=== PATIENT | female | born 1975 | race Two or more races ===

== ENCOUNTER 2018-10-14 04:59 | Observation (INO) | payer SELFPAY ==
--- NOTE | 2018-10-14 07:15 | US ---
INDICATION: Vaginal bleeding. Placenta previa. TECHNIQUE: A limited transabdominal obstetrical ultrasound COMPARISON: 10/02/2018 FINDINGS: A single live intrauterine gestation is again seen. There is cardiac activity with a heart rate of 134 BPM. measurements are not performed and anatomy is not evaluated. Complete placenta previa is again seen. The cervix is not well evaluated. Neither ovary is visualized. IMPRESSION: Limited study. A single live intrauterine gestation. A complete placenta previa again seen. The cervix and anatomy are not evaluated. Dictated by Zac Plummer MD @ 10/14/2018 7:13:40 AM Dictated by: Zac Plummer MD @ 10/14/2018 07:13:50 (Electronically Signed)
--- NOTE | 2018-10-14 07:49 | CONS ---
DATE OF CONSULTATION: 10/14/2018 DATE OF : 1975 PRIMARY CARE PHYSICIAN: None PCP Ms. Acevedo is a 43-year-old patient. She is para 6-0-2-4. This is her 7th . She is 26+ weeks by early ultrasound. She is mainly followed by our nurse-laboratory associate at this time. She has only been to the clinic for a few visits. However, the patient recently had an ultrasound with a diagnosis of complete placenta previa. The patient is presented today to Labor and Delivery, stated that when she went to the bathroom she had bleeding and blood clot had passed through her vagina to the bathroom, and she described the blood clot as about the size of a quarter and then she stopped bleeding. The bleeding is not initiated after sex and it is spontaneous. She has no contractions, no pain. She came to Labor and Delivery to be evaluated. At the time of the evaluation, her vital signs were essentially normal. heart rate is normal for 26 weeks' . I have the ultrasound repeated by the diesel powerplant supervisor staff and it has confirmed the presence of the placenta previa without any separation. I did gentle speculum exam. There is no active bleeding. There is some blood-tinged discharge in the vagina, but there is no other bleeding. Her vital signs were essentially stable and normal. I informed the patient of her diagnosis. She is already aware of the fact that she has placenta previa. My plan is to admit her for observation and to do serial H and H, and evaluate and manage accordingly. ALCIDES / DUARTE /[id number]
[2018-10-14] MEDS ORDERED: Acetaminophen 500 MG Tab PO ONE (19:46)
--- NOTE | 2018-10-15 11:47 | PCM.LDHP ---
L&D History of Present Illness - General Date of Service: 10/13/18 Admit Problem/Dx: Patient Status Order with Admit Dx/Problem 10/14/18 05:24 Patient Status [ADT] Routine 10/14/18 07:09 Patient Status [ADT] Routine Admission Diagnosis/Problem Admission Diagnosis/Problem Source of Information: Patient History Limitations: Reports: No Limitations - History of Present Illness Pain Score: 0 Improves with: Reports: None Worsens with: Reports: None Associated Symptoms: Reports: N - Related Data Allergies/Adverse Reactions: Allergies Allergy/AdvReac Type Severity Reaction Status Date / Time No Known Allergies Allergy Verified 09/30/15 04:51 Past Medical History - Past Health History Medical/Surgical History: Denies 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: Social & Family History - Family History Family Medical History: Unobtainable - Tobacco Use Smoking Status *Q: Never Smoker Second Hand Smoke Exposure: No - Caffeine Use Caffeine Use: Reports: Coffee - Recreational Drug Use Recreational Drug Use: No H&P Review of Systems - Review of Systems: Review Of Systems: See Below General: Reports: No Symptoms HEENT: Reports: No Symptoms Pulmonary: Reports: No Symptoms Cardiovascular: Reports: No Symptoms Gastrointestinal: Reports: No Symptoms Genitourinary: Reports: No Symptoms Musculoskeletal: Reports: No Symptoms Skin: Reports: No Symptoms Psychiatric: Reports: No Symptoms Neurological: Reports: No Symptoms Hematologic/Lymphatic: Reports: No Symptoms Immunologic: Reports: No Symptoms L&D Exam - Exam Exam: See Below - Vital Signs Weight: 67.585 kg - OB Specific Movement: Active Heart Tones: Present Presentation: Vertex - Exam General: Alert, Oriented HEENT: PERRLA, Conjunctiva Clear, EACs Clear, EOMI, Hearing Intact, Mucosa Moist & [place], Nares Patent, Normal Nasal Septum, Posterior Pharynx Clear, TMs Clear Neck: Supple, Trachea Midline Lungs: Clear to Auscultation, Normal Respiratory Effort Cardiovascular: Regular Rate, Regular Rhythm GI/Abdominal Exam: Normal Bowel Sounds, Soft, Non-Tender, No Organomegaly, No Distention, No Abnormal Bruit, No Mass, Pelvis Stable Rectal Exam: Normal Exam, Normal Rectal Tone Genitourinary: Normal external exam, Normal bimanual exam, Normal speculum exam Back Exam: Normal Inspection, Full Range of Motion Extremities: Normal Inspection, Normal Range of Motion, Non-Tender, No Pedal Edema, Normal Capillary Refill Skin: Warm, Dry, Intact Neurological: Cranial Nerves Intact, Reflexes Equal Bilateral Psychiatric: Alert, Normal Affect, Normal Mood - Patient Data Lab Results Last 24 hrs: Laboratory Results - last 24 hr 10/15/18 Range/Units 06:20 Hgb 10.7 L (12.0-16.0) g/dL Hct 31.9 L (36.0-46.0) % Result Diagrams: 10/15/18 06:20 Problem List Initiated/Reviewed/Updated: Yes Assessment/Plan Comment:: See my dictated consultation note.
--- NOTE | 2018-10-15 11:50 | PCM.DCSUM1 ---
Discharge Summary - Hospital Course Diagnosis: Stroke: No - Discharge Data Discharge Date: 10/15/18 Discharge Disposition: Home, Self-Care 01 Condition: Good - Patient Instructions Diet: Usual Diet as Tolerated Activity: As Tolerated Driving: May Drive Today, Do Not Drive Showering/Bathing: May Shower - Discharge Plan - Discharge Summary/Plan Comment DC Time >30 min.: Yes - General Info Date of Service: 10/15/18 Functional Status: Reports: Pain Controlled - Review of Systems General: Reports: No Symptoms HEENT: Reports: No Symptoms Pulmonary: Reports: No Symptoms Cardiovascular: Reports: No Symptoms Gastrointestinal: Reports: No Symptoms Genitourinary: Reports: No Symptoms Musculoskeletal: Reports: No Symptoms Skin: Reports: No Symptoms Neurological: Reports: No Symptoms Psychiatric: Reports: No Symptoms - Patient Data Weight - Most Recent: 67.585 kg Lab Results - Last 24 hrs: Laboratory Results - last 24 hr 10/15/18 Range/Units 06:20 Hgb 10.7 L (12.0-16.0) g/dL Hct 31.9 L (36.0-46.0) % Med Orders - Current: Current Medications Discontinued Medications Acetaminophen (Tylenol Extra Strength) 1,000 mg PO ONETIME ONE Stop: 10/14/18 19:47 Last Admin: 10/14/18 20:41 Dose: 1,000 mg - Exam General: Reports: Alert, Oriented HEENT: Reports: Pupils Equal, Pupils Reactive, EOMI, Mucous Membr. Moist/[place] Neck: Reports: Supple Lungs: Reports: Clear to Auscultation, Normal Respiratory Effort Cardiovascular: Reports: Regular Rate, Regular Rhythm GI/Abdominal Exam: Normal Bowel Sounds, Soft, Non-Tender, No Organomegaly, No Distention, No Abnormal Bruit, No Mass, Pelvis Stable (Female) Exam: Normal External Exam, Normal Speculum Exam, Normal Bimanual Exam Rectal (Female) Exam: Normal Exam, Normal Rectal Tone Back Exam: Reports: Normal Inspection, Full Range of Motion Extremities: Normal Inspection, Normal Range of Motion, Non-Tender, No Pedal Edema, Normal Capillary Refill Skin: Reports: Warm, Dry, Intact Wound/Incisions: Reports: Healing Well Neurological: Reports: No New Focal Deficit Psy/Mental Status: Reports: Alert, Normal Affect, Normal Mood
== END 2018-10-15 12:04 | disposition home or self-care (01) ==
LOC: MW.OBCHECK 04:59 → MW.OB 05:02 → MW.OBCHECK 07:08 → MW.OB 07:09
PROVIDERS: ADMIT Obstetrics & Gynecology; ATTEND Obstetrics & Gynecology
DX: O46.92 Antepartum hemorrhage, unspecified, second trimester (principal); Z3A.26 26 weeks gestation of pregnancy
CPT/HCPCS: 36415; 59025; 76815; 85014; 85018; 85027; 86850; 86900; 86901; A9270; G0378

== ENCOUNTER 2019-01-02 00:43 | Inpatient (IN) | payer SELFPAY ==
[~2019-01-02 00:43] MED LIST: Sodium Chloride 0.9% 1,000 ML IV ONE
--- NOTE | 2019-01-02 00:52 | EDM.PDOC ---
ED HPI GENERAL MEDICAL PROBLEM - General Stated Complaint: 35WKS AND BLEEDING Time Seen by Provider: 01/02/19 00:46 - History of Present Illness INITIAL COMMENTS - FREE TEXT/NARRATIVE: HISTORY AND PHYSICAL: History of present illness: Patient is 43-year-old female approximately 35 weeks with reported placenta previa who presents with concern of vaginal bleeding generalized weakness and dizziness this started acutely tonight. On arrival patient is pale awake conversant following commands with large blood coming from her vagina. 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 Breaux CLAIM EXAMINER as well as anesthesia and operating room team were activated immediately Review of systems: As per history of present illness and below otherwise all systems reviewed and negative. Past medical history: As per history of present illness and as reviewed below otherwise noncontributory. Surgical history: As per history of present illness and as reviewed below otherwise noncontributory. Social history: No reported history of drug or alcohol abuse. Family history: As per history of present illness and as reviewed below otherwise noncontributory. Physical exam: HEENT: Atraumatic, normocephalic, pupils reactive, marked conjunctival pallor no scleral icterus, mucous membranes moist, throat clear, neck supple, nontender , trachea midline. Lungs: Clear to auscultation, breath sounds equal bilaterally, chest nontender. Heart: S1S2, regular, negative for clicks, rubs, or JVD. Abdomen: Soft, gravid uterus consistent with dates noted, nontender. Negative for masses or hepatosplenomegaly. Negative for costovertebral tenderness. Pelvis: Stable nontender. Genitourinary: Deferred. Rectal: Deferred. Extremities: Atraumatic, negative for cords or calf pain. Neurovascular unremarkable. Neuro: Awake, somnolent, oriented. Follows commands moves all extremities and grossly nonfocal exam. Diagnostics: CBC CMP PT/INR O- blood monitoring. Inspector [employer]: Large-bore IV 0.9 normal saline 1 L bolus 2 units O- blood when available O2 Impression: #1 35 week intrauterine with placenta previa and vaginal bleeding Definitive disposition and diagnosis as appropriate pending reevaluation and review of above. 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 ED EXAM, GENERAL - Physical Exam Exam: See Below (See dictation) Departure - Departure Time of Disposition: 00:52 Disposition: Still A Patient 30 Condition: Critical Clinical Impression: Placenta previa, Vaginal bleeding - Discharge Information Referrals: PCP,None [Primary Care Provider] -
[2019-01-02] MEDS ORDERED: Rocuronium 100 MG/10 ML Syringe ONE (01:04)
[2019-01-02] MEDS ORDERED: ePHEDrine 50 MG/ML SDV ONE (01:05)
[2019-01-02] MEDS ORDERED: Phenylephrine/Normal Saline 100 MCG/ML 10 ML Syringe ONE (01:05)
[2019-01-02] MEDS ORDERED: Midazolam 1 MG/ML 2 ML SDV ONE (01:05)
[2019-01-02] MEDS ORDERED: Propofol 200 MG/20 ML SDV ONE (01:05)
[2019-01-02] MEDS ORDERED: fentaNYL 250 MCG/5 ML SDV ONE (01:05)
[2019-01-02 01:09] LABS: BLOOD UREA NITROGEN,BUN 7 mg/dL (7.0-18.0); CARBON DIOXIDE,CO2 19.5 mmol/L (21.0-32.0); CHLORIDE,CL 105 mmol/L (98-107); GLUCOSE RANDOM 95 mg/dL (74-106); POTASSIUM,K 3.8 mmol/L (3.5-5.1); SODIUM,NA 136 mmol/L (136-145)
[2019-01-02] MEDS ORDERED: Octyl 2-Cyanoacrylate 1 Tube ONE (01:36)
[2019-01-02] MEDS ORDERED: diphenhydrAMINE 50 MG/ML SDV IVPUSH PRN (01:42)
[2019-01-02] MEDS ORDERED: Lanolin 100% Cream 7 GM Tube TOP PRN (01:42)
[2019-01-02] MEDS ORDERED: Acetaminophen/oxyCODONE 325-5 MG Tab PO PRN (01:42)
[2019-01-02] MEDS ORDERED: Ondansetron 4 MG/2 ML SDV IVPUSH PRN (01:42)
[2019-01-02] MEDS ORDERED: Bisacodyl 10 MG Supp RECTAL PRN (01:42)
[2019-01-02] MEDS ORDERED: Lactated Ringers 1,000 ML IV SCH (01:45)
--- NOTE | 2019-01-02 01:47 | PCM.OPNOTE ---
- General Post-Op/Procedure Note Date of Surgery/Procedure: 01/02/19 Operative Procedure(s): emergancy C/section. Pre Op Diagnosis: [id number] plasenta previa activly bleeding. Post-Op Diagnosis: Same Anesthesia Technique: General ET Tube Primary Surgeon: Michel Breaux Youth Accommodation Support Worker: Kasey Marie EBL in mLs: 1,500 Complications: None Condition: Good
[2019-01-02] MEDS ORDERED: Glycopyrrolate 0.2 MG/ML SDV ONE (02:15)
[2019-01-02] MEDS ORDERED: Methylergonovine 0.2 MG/1 ML Amp ONE (02:17)
[2019-01-02] MEDS ORDERED: fentaNYL 100 MCG/2 ML SDV ONE (02:44)
[2019-01-02] MEDS: Sodium Chloride 0.9% 1,000 ML IV SCH ×2 (04:00→12:08)
[2019-01-02] MEDS ORDERED: Magnesium Sulfate/Water 50 ML ONE (04:24)
[2019-01-02 06:44] LABS: BLOOD UREA NITROGEN,BUN 8 mg/dL (7.0-18.0); CARBON DIOXIDE,CO2 17.8 mmol/L (21.0-32.0); CHLORIDE,CL 109 mmol/L (98-107); GLUCOSE RANDOM 153 mg/dL (74-106); SODIUM,NA 139 mmol/L (136-145)
--- NOTE | 2019-01-02 06:54 | PCM.PREANE ---
Preanesthetic Assessment - Anesthesia/Transfusion/Family Hx Anesthesia History: No Prior Anesthesia Family History of Anesthesia Reaction: No Transfusion History: No Prior Transfusion(s) - Review of Systems General: No Symptoms Pulmonary: No Symptoms Cardiovascular: No Symptoms Gastrointestinal: No Symptoms Neurological: No Symptoms Other: Reports: None - Physical Assessment NPO Status Date: 01/02/19 NPO Status Time: 00:20 Vital Signs: Last Vital Signs Temp 97.6 F 01/02/19 06:14 Pulse 116 H 01/02/19 00:45 Resp 20 01/02/19 06:14 BP 105/68 01/02/19 06:14 Pulse Ox 98 01/02/19 06:14 Height: 5 ft 3 in ASA Class: 5E Emergency Mental Status: Alert & Oriented x3 Airway Class: Mallampati = 2 Dentition: Reports: Normal Dentition Thyro-Mental Finger Breadths: 3 Mouth Opening Finger Breadths: 3 ROM/Head Extension: Full Lungs: Clear to Auscultation, Normal Respiratory Effort Cardiovascular: Tachycardia - Lab Values: Laboratory Last Values WBC 22.31 K/uL (4.0-11.0) H 01/02/19 05:35 RBC 3.57 M/uL (4.30-5.90) L 01/02/19 05:35 Hgb 10.4 g/dL (12.0-16.0) L 01/02/19 05:35 Hct 30.4 % (36.0-46.0) L 01/02/19 05:35 MCV 85.2 fL (80.0-98.0) 01/02/19 05:35 MCH 29.1 pg (27.0-32.0) 01/02/19 05:35 MCHC 34.2 g/dL (31.0-37.0) 01/02/19 05:35 RDW Std Deviation 43.2 fl (28.0-62.0) 01/02/19 05:35 RDW Coeff of Jake 14 % (11.0-15.0) 01/02/19 05:35 Plt Count 144 K/uL (150-400) L 01/02/19 05:35 MPV 10.00 fL (7.40-12.00) 01/02/19 05:35 Neut % (Auto) 62.2 % (48.0-80.0) 01/02/19 01:44 Lymph % (Auto) 27.5 % (16.0-40.0) 01/02/19 01:44 [place] % (Auto) 8.1 % (0.0-15.0) 01/02/19 01:44 Eos % (Auto) 2.0 % (0.0-7.0) 01/02/19 01:44 Baso % (Auto) 0.2 % (0.0-1.5) 01/02/19 01:44 Neut # (Auto) 13.1 K/uL (1.4-5.7) H 01/02/19 01:44 Lymph # (Auto) 5.8 K/uL (0.6-2.4) H 01/02/19 01:44 [place] # (Auto) 1.7 K/uL (0.0-0.8) H 01/02/19 01:44 Eos # (Auto) 0.4 K/uL (0.0-0.7) 01/02/19 01:44 Baso # (Auto) 0.0 K/uL (0.0-0.1) 01/02/19 01:44 Add Manual Diff YES 01/02/19 05:35 Neutrophils % (Manual) 70 % (48.0-80.0) 01/02/19 05:35 Band Neutrophils % 19 % 01/02/19 05:35 Lymphocytes % (Manual) 5 % (16.0-40.0) L 01/02/19 05:35 Monocytes % (Manual) 6 % (0.0-15.0) 01/02/19 05:35 Nucleated RBC % 0.0 /100WBC 01/02/19 05:35 Absolute Seg Neuts 15.6 (1.4-5.7) H 01/02/19 05:35 Band Neutrophils # 4.2 01/02/19 05:35 Lymphocytes # (Manual) 1.1 (0.6-2.4) 01/02/19 05:35 Monocytes # (Manual) 1.3 (0.0-0.8) H 01/02/19 05:35 Nucleated RBCs # 0 K/uL 01/02/19 05:35 INR 0.92 01/02/19 00:44 Sodium 136 mmol/L (136-145) 01/02/19 00:44 Potassium 3.8 mmol/L (3.5-5.1) 01/02/19 00:44 Chloride 105 mmol/L (98-107) 01/02/19 00:44 Carbon Dioxide 19.5 mmol/L (21.0-32.0) L 01/02/19 00:44 BUN 7 mg/dL (7.0-18.0) 01/02/19 00:44 Creatinine 0.7 mg/dL (0.6-1.0) 01/02/19 00:44 Est Cr Clr Drug Dosing TNP 01/02/19 00:44 Estimated GFR (MDRD) > 60.0 ml/min 01/02/19 00:44 Glucose 95 mg/dL (74-106) 01/02/19 00:44 Calcium 7.8 mg/dL (8.5-10.1) L 01/02/19 00:44 Total Bilirubin 0.6 mg/dL (0.2-1.0) 01/02/19 00:44 AST 16 IU/L (15-37) 01/02/19 00:44 ALT 12 IU/L (14-63) L 11 00:44 Alkaline Phosphatase 167 U/L (46-116) H 01/02/19 00:44 Total Protein 6.5 g/dL (6.4-8.2) 01/02/19 00:44 Albumin 2.5 g/dL (3.4-5.0) L 01/02/19 00:44 Globulin 4.0 g/dL (2.6-4.0) 01/02/19 00:44 Albumin/Globulin Ratio 0.6 (0.9-1.6) L 01/02/19 00:44 Blood Type O POSITIVE 01/02/19 00:44 Antibody Screen NEGATIVE 01/02/19 00:44 Crossmatch See Detail 01/02/19 00:44 - Allergies Allergies/Adverse Reactions: Allergies Allergy/AdvReac Type Severity Reaction Status Date / Time No Known Allergies Allergy Verified 01/02/19 00:58 - Blood Blood Available: Yes Product(s) Available: PRBC, FFP - Anesthesia Plan Free Text/Narrative:: Unable to obtain consent from patient due to critical nature. informed of the patients critical nature, blood transfusion, risk of and other serious bodily harm. expressed understanding. 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: : 5 Para: 0 LMP (Approximate): Musculoskeletal History: Reports: None Neurological History: Reports: None Psychiatric History: Reports: None Endocrine/Metabolic History: Reports: None Hematologic History: Reports: None Immunologic History: Reports: None Oncologic (Cancer) History: Reports: None Dermatologic History: Reports: None - Infectious Disease History Infectious Disease History: Reports: None - Past Surgical History Head Surgeries/Procedures: Reports: None - SUBSTANCE USE Smoking Status *Q: Never Smoker Recreational Drug Use History: No - HOME MEDS Home Medications: Home Meds No122/Iron/Folic Acid [ Multi Tablet] 1 each PO DAILY 01/02/19 [History] - CURRENT (IN HOUSE) MEDS Current Meds: Current Medications Bisacodyl (Dulcolax) 10 mg RECTAL ONETIME PRN PRN Reason: Constipation Diphenhydramine HCl (Benadryl) 25 mg IVPUSH Q6H PRN PRN Reason: Itching or Nausea Docusate Sodium (Colace) 100 mg PO BID [facility] Emollient Ointment (Lansinoh Hpa) 0 gm TOP ASDIRECTED PRN PRN Reason: Sore Nipples Lactated Ringer's (Ringers, Lactated) 1,000 mls @ 125 mls/hr IV ASDIRECTED [place] Sodium Chloride (Normal Saline) 1,000 mls @ 125 mls/hr IV ASDIRECTED [facility] Ibuprofen (Motrin) 800 mg PO Q8H PRN PRN Reason: mild pain or fever Ketorolac Tromethamine (Toradol) 30 mg IVPUSH Q6H [facility] Stop: 01/03/19 01:46 Ondansetron HCl (Zofran) 4 mg IVPUSH Q4H PRN PRN Reason: Nausea/Vomiting Oxycodone/Acetaminophen (Percocet 325-5 Mg) 1 tab PO Q4H PRN PRN Reason: Pain (moderate 4-6) Oxycodone/Acetaminophen (Percocet 325-5 Mg) 2 tab PO Q4H PRN PRN Reason: Pain (moderate 4-6) Discontinued Medications Ephedrine Sulfate (Ephedrine Sulfate) Confirm Administered Dose 50 mg .ROUTE .STK-MED ONE Stop: 01/02/19 01:06 Fentanyl (Sublimaze) Confirm Administered Dose 250 mcg .ROUTE .STK-MED ONE Stop: 01/02/19 01:06 Fentanyl (Sublimaze) Confirm Administered Dose 100 mcg .ROUTE .STK-MED ONE Stop: 01/02/19 02:45 Last Admin: 01/02/19 06:16 Dose: Not Given Glycopyrrolate (Robinul) Confirm Administered Dose 0.2 mg .ROUTE .STK-MED ONE Stop: 01/02/19 02:16 Sodium Chloride (Normal Saline) 1,000 mls @ 999 mls/hr IV .Bolus ONE Stop: 01/02/19 01:43 Last Admin: 01/02/19 00:43 Dose: 999 mls/hr Sodium Chloride (Normal Saline) 1,000 mls @ 999 mls/hr IV .Bolus ONE Stop: 01/02/19 01:43 Last Admin: 01/02/19 00:43 Dose: 999 mls/hr Magnesium Sulfate (Magnesium Sulfate In Water Premix) Confirm Administered Dose 50 mls @ as directed .ROUTE .STK-MED ONE Stop: 01/02/19 04:25 Last Admin: 01/02/19 05:41 Dose: Not Given Methylergonovine Maleate (Methergine) Confirm Administered Dose 0.2 mg .ROUTE .STK-MED ONE Stop: 01/02/19 02:18 Midazolam HCl (Versed 1 Mg/Ml) Confirm Administered Dose 2 mg .ROUTE .STK-MED ONE Stop: 01/02/19 01:06 Octyl Cyanoacrylate (Dermabond Advance) Confirm Administered Dose 1 applic .ROUTE .STK-MED ONE Stop: 01/02/19 01:37 Phenylephrine HCl (Phenylephrine In Ns 100 Mcg/Ml) Confirm Administered Dose 1 mg .ROUTE .STK-MED ONE Stop: 01/02/19 01:06 Propofol (Diprivan 20 Ml) Confirm Administered Dose 200 mg .ROUTE .STK-MED ONE Stop: 01/02/19 01:06 Rocuronium [place] (Zemuron) Confirm Administered Dose 100 mg .ROUTE .STK-MED ONE Stop: 01/02/19 01:05 Succinylcholine Chloride (Succinylcholine Chloride) Confirm Administered Dose 200 mg .ROUTE .STK-MED ONE Stop: 01/02/19 01:05 Tranexamic Acid (Cyklokapron) Confirm Administered Dose 1,000 mg .ROUTE .ST- MED ONE Stop: 01/02/19 02:27 Last Admin: 01/02/19 06:16 Dose: Not Given
--- NOTE | 2019-01-02 06:57 | PCM.POSTAN ---
POST ANESTHESIA ASSESSMENT - MENTAL STATUS Mental Status: Confused, Disoriented - VITAL SIGNS Vital Signs: Last Vital Signs Temp 97.6 F 01/02/19 06:14 Pulse 116 H 01/02/19 00:45 Resp 20 01/02/19 06:14 BP 105/68 01/02/19 06:14 Pulse Ox 98 01/02/19 06:14 - RESPIRATORY Respiratory Status: Respiratory Rate WNL, Airway Patent, O2 Saturation Stable, Supplemental Oxygen - CARDIOVASCULAR CV Status: Pulse Rate WNL, Blood Pressure Stable - GASTROINTESTINAL GI Status: No Symptoms - PAIN Pain Score: 2 - POST OP HYDRATION Hydration Status: Hypovolemic - OBSERVATIONS Free Text/Narrative:: Pt transferred to ICU for continued invasive BP monitoring and hemorrhage monitoring.
--- NOTE | 2019-01-02 07:01 | PCM.SN ---
- Free Text/Narrative Note: Intra-OP procedure note Due to pre-anesthesia induction hypotension and continued hypotension intra-op secondary to severe hemorrhagic shock; arterial line placement was indicated. Unable to obtain consent at this time as the patient was under anesthesia. Rt radial pulse was palpated, adequate collateral blood flow was noted. Rt wrist was prepped and draped in sterile fashion with betadine and sterile towels. Rt radial artery was appreciated again and 20g arrow catheter was then introduced into the artery, guidewire advanced without difficulty, catheter advanced over the wire without difficulty. Catheter was then transduced with good arterial waveform. Catheter was secured with tape, tegaderm, and armboard. No apparent complications were noted.
--- NOTE | 2019-01-02 07:03 | PCM.SN ---
- Free Text/Narrative Note: Once the patient was brought to the OR, I was unable to locate a blood consent. The blood forms were documented as NO blood consent being obtained as we did not have a signed blood consent during our resuscitative efforts. The was found while in the OR and blood consent was obtained, signed, and placed on the patients chart.
[2019-01-02 07:28] LABS: BLOOD UREA NITROGEN,BUN 7 mg/dL (7.0-18.0); CARBON DIOXIDE,CO2 16.4 mmol/L (21.0-32.0); CHLORIDE,CL 109 mmol/L (98-107); GLUCOSE RANDOM 172 mg/dL (74-106); POTASSIUM,K 4.6 mmol/L (3.5-5.1); SODIUM,NA 138 mmol/L (136-145)
[2019-01-02] MEDS: Ketorolac 30 MG/ML SDV IVPUSH SCH ×2 (07:50→07:55)
--- NOTE | 2019-01-02 09:21 | OR ---
SURGEON: Michel Breaux MD DATE OF PROCEDURE: PREOPERATIVE DIAGNOSIS: Intrauterine at 35 weeks, known placenta previa, actively bleeding. POSTOPERATIVE DIAGNOSIS: Intrauterine at 35 weeks, known placenta previa, actively bleeding. OPERATION PERFORMED: Emergency low transverse section through a midline incision. FREIGHT TALLIER: Kasey Marie, Certified Nurse Political Geographer. ANESTHESIA: General, Pito Post and Dr. Branch. ESTIMATED BLOOD LOSS: 1500 mL, and the patient has lost at least 300 to 400 mL of blood prior to coming to the OR. Replacement is 4 units of blood and 2 units of fresh frozen plasma and 2 L of crystalloid IV solution. INDICATION FOR SURGERY: This patient is 43. She is 35 weeks plus. She is known to have placenta previa. She is scheduled for elective section next week; however, the patient today presented to the emergency room with active bleeding and upon history from her , the patient's stated that she started bleeding 10 minutes ago. She was taken care by the emergency room personnel. At the time of my arrival, the patient had 2 IV fluids running wide open. She has already received 1 unit of blood transfusion. heart tones and movement are present. The patient is awake and conscious and in stable general condition; however, she is hypotensive. We immediately moved to the OR to perform emergency section with a possibility of doing a hysterectomy if it is needed. PROCEDURE IN DETAIL: The patient was brought to the OR, properly identified, and after adequate level of general anesthesia with a Vanegas catheter in the bladder, the patient was prepped and draped in a sterile fashion as usual. A midline incision from beneath the umbilicus to the symphysis pubis was done. Tyler fascia and rectus fascia were opened in the direction of the incision and then bladder flap was raised in the usual manner, pushing the bladder away from the lower uterine segment. Low transverse uterine incision was done, extended manually with hand and I went through the placenta to extract the fetus. The fetus cried immediately. Cord was clamped and the fetus was handed to the resuscitating team headed by the mechanical maintenance instructor, who was present at the time of the delivery. I was able to separate and remove the placenta without any issue and then I started repairing the uterine incision. The patient had upward extension of her incision, so I proceeded to close it in 2 layers with 2-0 Vicryl continuous interlocking and then reperitonealization done with 3-0 Vicryl continuous and then on inspection of the incision, there were a few areas of oozing from the incision. [id number] suture using #1 PDS was done and the bleeding was stopped. The patient did have extension of her incision, so in the future, if she has , she would need to have a repeat section. Then, the peritoneal cavity was evacuated completely from all blood and blood clot and closed the peritoneum with 3-0 Vicryl and then the fascia with #1 PDS double strand continuous, the Tyler's fascia with 3-0 Vicryl continuous, and the skin closed with Stratafix in a subcuticular fashion and Dermabond. Instrument and sponge counts were correct; however, before reassurance and documentation, because the procedure was an emergency, I ordered x-ray of the abdomen just to make sure that everything is okay. The patient tolerated the procedure well, went to recovery room in stable general condition and she will later on be transferred to the intensive care after her period in the recovery room. ALCIDES / DUARTE /[id number]
[2019-01-02] MEDS ORDERED: Morphine 4 MG/ML Syringe IVPUSH PRN (10:27)
--- NOTE | 2019-01-02 10:39 | PCM.PNPP ---
- General Info Date of Service: 01/02/19 Functional Status: Reports: Pain Controlled - Review of Systems General: Reports: No Symptoms HEENT: Reports: No Symptoms Pulmonary: Reports: No Symptoms Cardiovascular: Reports: No Symptoms Gastrointestinal: Reports: No Symptoms Genitourinary: Reports: No Symptoms Musculoskeletal: Reports: No Symptoms Skin: Reports: No Symptoms Neurological: Reports: No Symptoms Psychiatric: Reports: No Symptoms - General Info Date of Service: 01/02/19 - Patient Data Vital Signs - Most Recent: Last Vital Signs Temp 36.4 C 01/02/19 10:00 Pulse 77 01/02/19 10:00 Resp 25 H 01/02/19 10:00 BP 119/73 01/02/19 10:00 Pulse Ox 96 01/02/19 10:00 I&O - Last 24 Hours: Intake & Output 01/01/19 01/02/19 01/02/19 22:59 06:59 14:59 Intake Total 210 190 Output Total 275 Balance -65 190 Lab Results - Last 24 Hours: Laboratory Results - last 24 hr 01/02/19 01/02/19 01/02/19 Range/Units 00:44 00:44 00:44 WBC 11.00 (4.0-11.0) K/uL RBC 3.73 L (4.30-5.90) M/uL Hgb 10.5 L (12.0-16.0) g/dL Hct 31.6 L (36.0-46.0) % MCV 84.7 (80.0-98.0) fL MCH 28.2 (27.0-32.0) pg MCHC 33.2 (31.0-37.0) g/dL RDW Std Deviation 38.1 (28.0-62.0) fl RDW Coeff of Jake 13 (11.0-15.0) % Plt Count 245 (150-400) K/uL MPV 9.80 (7.40-12.00) fL Neut % (Auto) 64.0 (48.0-80.0) % Lymph % (Auto) 25.2 (16.0-40.0) % Payette % (Auto) 8.2 (0.0-15.0) % Eos % (Auto) 2.2 (0.0-7.0) % Baso % (Auto) 0.4 (0.0-1.5) % Neut # (Auto) 7.1 H (1.4-5.7) K/uL Lymph # (Auto) 2.8 H (0.6-2.4) K/uL Payette # (Auto) 0.9 H (0.0-0.8) K/uL Eos # (Auto) 0.2 (0.0-0.7) K/uL Baso # (Auto) 0.0 (0.0-0.1) K/uL Add Manual Diff Neutrophils % (Manual) (48.0-80.0) % Band Neutrophils % % Lymphocytes % (Manual) (16.0-40.0) % Monocytes % (Manual) (0.0-15.0) % Nucleated RBC % /100WBC Absolute Seg Neuts (1.4-5.7) Band Neutrophils # Lymphocytes # (Manual) (0.6-2.4) Monocytes # (Manual) (0.0-0.8) Nucleated RBCs # K/uL INR 0.92 APTT (18.6-31.3) SEC Fibrinogen (215-411) mg/dL Sodium 136 (136-145) mmol/L Potassium 3.8 (3.5-5.1) mmol/L Chloride 105 (98-107) mmol/L Carbon Dioxide 19.5 L (21.0-32.0) mmol/L BUN 7 (7.0-18.0) mg/dL Creatinine 0.7 (0.6-1.0) mg/dL Est Cr Clr Drug Dosing TNP Estimated GFR (MDRD) > 60.0 ml/min Glucose 95 (74-106) mg/dL Calcium 7.8 L (8.5-10.1) mg/dL Magnesium (1.8-2.4) mg/dL Total Bilirubin 0.6 (0.2-1.0) mg/dL AST 16 (15-37) IU/L ALT 12 L (14-63) IU/L Alkaline Phosphatase 167 H (46-116) U/L Total Protein 6.5 (6.4-8.2) g/dL Albumin 2.5 L (3.4-5.0) g/dL Globulin 4.0 (2.6-4.0) g/dL Albumin/Globulin Ratio 0.6 L (0.9-1.6) Blood Type Antibody Screen Crossmatch 01/02/19 01/02/19 01/02/19 Range/Units 00:44 01:43 01:44 WBC 20.98 H (4.0-11.0) K/uL RBC 3.05 L (4.30-5.90) M/uL Hgb 8.9 L (12.0-16.0) g/dL Hct 26.9 L (36.0-46.0) % MCV 88.2 (80.0-98.0) fL MCH 29.2 (27.0-32.0) pg MCHC 33.1 (31.0-37.0) g/dL RDW Std Deviation 41.5 (28.0-62.0) fl RDW Coeff of Jake 13 (11.0-15.0) % Plt Count 150 (150-400) K/uL MPV 9.80 (7.40-12.00) fL Neut % (Auto) 62.2 (48.0-80.0) % Lymph % (Auto) 27.5 (16.0-40.0) % Payette % (Auto) 8.1 (0.0-15.0) % Eos % (Auto) 2.0 (0.0-7.0) % Baso % (Auto) 0.2 (0.0-1.5) % Neut # (Auto) 13.1 H (1.4-5.7) K/uL Lymph # (Auto) 5.8 H (0.6-2.4) K/uL Payette # (Auto) 1.7 H (0.0-0.8) K/uL Eos # (Auto) 0.4 (0.0-0.7) K/uL Baso # (Auto) 0.0 (0.0-0.1) K/uL Add Manual Diff Neutrophils % (Manual) (48.0-80.0) % Band Neutrophils % % Lymphocytes % (Manual) (16.0-40.0) % Monocytes % (Manual) (0.0-15.0) % Nucleated RBC % /100WBC Absolute Seg Neuts (1.4-5.7) Band Neutrophils # Lymphocytes # (Manual) (0.6-2.4) Monocytes # (Manual) (0.0-0.8) Nucleated RBCs # K/uL INR APTT 30.8 (18.6-31.3) SEC Fibrinogen (215-411) mg/dL Sodium (136-145) mmol/L Potassium (3.5-5.1) mmol/L Chloride (98-107) mmol/L Carbon Dioxide (21.0-32.0) mmol/L BUN (7.0-18.0) mg/dL Creatinine (0.6-1.0) mg/dL Est Cr Clr Drug Dosing Estimated GFR (MDRD) ml/min Glucose (74-106) mg/dL Calcium (8.5-10.1) mg/dL Magnesium (1.8-2.4) mg/dL Total Bilirubin (0.2-1.0) mg/dL AST (15-37) IU/L ALT (14-63) IU/L Alkaline Phosphatase (46-116) U/L Total Protein (6.4-8.2) g/dL Albumin (3.4-5.0) g/dL Globulin (2.6-4.0) g/dL Albumin/Globulin Ratio (0.9-1.6) Blood Type O POSITIVE Antibody Screen NEGATIVE Crossmatch See Detail 01/02/19 01/02/19 01/02/19 Range/Units 01:44 01:44 05:35 WBC 22.31 H (4.0-11.0) K/uL RBC 3.57 L (4.30-5.90) M/uL Hgb 10.4 L (12.0-16.0) g/dL Hct 30.4 L (36.0-46.0) % MCV 85.2 (80.0-98.0) fL MCH 29.1 (27.0-32.0) pg MCHC 34.2 (31.0-37.0) g/dL RDW Std Deviation 43.2 (28.0-62.0) fl RDW Coeff of Jake 14 (11.0-15.0) % Plt Count 144 L (150-400) K/uL MPV 10.00 (7.40-12.00) fL Neut % (Auto) (48.0-80.0) % Lymph % (Auto) (16.0-40.0) % Payette % (Auto) (0.0-15.0) % Eos % (Auto) (0.0-7.0) % Baso % (Auto) (0.0-1.5) % Neut # (Auto) (1.4-5.7) K/uL Lymph # (Auto) (0.6-2.4) K/uL Payette # (Auto) (0.0-0.8) K/uL Eos # (Auto) (0.0-0.7) K/uL Baso # (Auto) (0.0-0.1) K/uL Add Manual Diff YES Neutrophils % (Manual) 70 (48.0-80.0) % Band Neutrophils % 19 % Lymphocytes % (Manual) 5 L (16.0-40.0) % Monocytes % (Manual) 6 (0.0-15.0) % Nucleated RBC % 0.0 /100WBC Absolute Seg Neuts 15.6 H (1.4-5.7) Band Neutrophils # 4.2 Lymphocytes # (Manual) 1.1 (0.6-2.4) Monocytes # (Manual) 1.3 H (0.0-0.8) Nucleated RBCs # 0 K/uL INR 1.04 APTT (18.6-31.3) SEC Fibrinogen 201 L (215-411) mg/dL Sodium 138 (136-145) mmol/L Potassium 4.6 (3.5-5.1) mmol/L Chloride 109 H (98-107) mmol/L Carbon Dioxide 16.4 L (21.0-32.0) mmol/L BUN 7 (7.0-18.0) mg/dL Creatinine 0.6 (0.6-1.0) mg/dL Est Cr Clr Drug Dosing TNP Estimated GFR (MDRD) > 60.0 ml/min Glucose 172 H (74-106) mg/dL Calcium 7.3 L (8.5-10.1) mg/dL Magnesium (1.8-2.4) mg/dL Total Bilirubin 0.4 (0.2-1.0) mg/dL AST 15 (15-37) IU/L ALT 8 L (14-63) IU/L Alkaline Phosphatase 99 (46-116) U/L Total Protein 3.8 L (6.4-8.2) g/dL Albumin 1.5 L (3.4-5.0) g/dL Globulin 2.3 L (2.6-4.0) g/dL Albumin/Globulin Ratio 0.7 L (0.9-1.6) Blood Type Antibody Screen Crossmatch 01/02/19 01/02/19 Range/Units 05:35 05:35 WBC (4.0-11.0) K/uL RBC (4.30-5.90) M/uL Hgb (12.0-16.0) g/dL Hct (36.0-46.0) % MCV (80.0-98.0) fL MCH (27.0-32.0) pg MCHC (31.0-37.0) g/dL RDW Std Deviation (28.0-62.0) fl RDW Coeff of Jake (11.0-15.0) % Plt Count (150-400) K/uL MPV (7.40-12.00) fL Neut % (Auto) (48.0-80.0) % Lymph % (Auto) (16.0-40.0) % Payette % (Auto) (0.0-15.0) % Eos % (Auto) (0.0-7.0) % Baso % (Auto) (0.0-1.5) % Neut # (Auto) (1.4-5.7) K/uL Lymph # (Auto) (0.6-2.4) K/uL Payette # (Auto) (0.0-0.8) K/uL Eos # (Auto) (0.0-0.7) K/uL Baso # (Auto) (0.0-0.1) K/uL Add Manual Diff Neutrophils % (Manual) (48.0-80.0) % Band Neutrophils % % Lymphocytes % (Manual) (16.0-40.0) % Monocytes % (Manual) (0.0-15.0) % Nucleated RBC % /100WBC Absolute Seg Neuts (1.4-5.7) Band Neutrophils # Lymphocytes # (Manual) (0.6-2.4) Monocytes # (Manual) (0.0-0.8) Nucleated RBCs # K/uL INR 1.02 APTT (18.6-31.3) SEC Fibrinogen 174 L (215-411) mg/dL Sodium 139 (136-145) mmol/L Potassium 4.0 (3.5-5.1) mmol/L Chloride 109 H (98-107) mmol/L Carbon Dioxide 17.8 L (21.0-32.0) mmol/L BUN 8 (7.0-18.0) mg/dL Creatinine 0.6 (0.6-1.0) mg/dL Est Cr Clr Drug Dosing TNP Estimated GFR (MDRD) > 60.0 ml/min Glucose 153 H (74-106) mg/dL Calcium 7.3 L (8.5-10.1) mg/dL Magnesium 1.9 (1.8-2.4) mg/dL Total Bilirubin 1.0 (0.2-1.0) mg/dL AST 14 L (15-37) IU/L ALT 9 L (14-63) IU/L Alkaline Phosphatase 91 (46-116) U/L Total Protein 4.3 L (6.4-8.2) g/dL Albumin 1.8 L (3.4-5.0) g/dL Globulin 2.5 L (2.6-4.0) g/dL Albumin/Globulin Ratio 0.7 L (0.9-1.6) Blood Type Antibody Screen Crossmatch Med Orders - Current: Current Medications Bisacodyl (Dulcolax) 10 mg RECTAL ONETIME PRN PRN Reason: Constipation Diphenhydramine HCl (Benadryl) 25 mg IVPUSH Q6H PRN PRN Reason: Itching or Nausea Docusate Sodium (Colace) 100 mg PO BID [facility] Emollient Ointment (Lansinoh Hpa) 0 gm TOP ASDIRECTED PRN PRN Reason: Sore Nipples Sodium Chloride (Normal Saline) 1,000 mls @ 125 mls/hr IV ASDIRECTED [facility] Last Admin: 01/02/19 04:00 Dose: 125 mls/hr Ibuprofen (Motrin) 800 mg PO Q8H PRN PRN Reason: mild pain or fever Morphine Sulfate (Morphine) 4 mg IVPUSH Q4H PRN PRN Reason: Pain Ondansetron HCl (Zofran) 4 mg IVPUSH Q4H PRN PRN Reason: Nausea/Vomiting Oxycodone/Acetaminophen (Percocet 325-5 Mg) 1 tab PO Q4H PRN PRN Reason: Pain (moderate 4-6) Oxycodone/Acetaminophen (Percocet 325-5 Mg) 2 tab PO Q4H PRN PRN Reason: Pain (moderate 4-6) Discontinued Medications Ephedrine Sulfate (Ephedrine Sulfate) Confirm Administered Dose 50 mg .ROUTE .STK-MED ONE Stop: 01/02/19 01:06 Fentanyl (Sublimaze) Confirm Administered Dose 250 mcg .ROUTE .STK-MED ONE Stop: 01/02/19 01:06 Fentanyl (Sublimaze) Confirm Administered Dose 100 mcg .ROUTE .STK-MED ONE Stop: 01/02/19 02:45 Last Admin: 01/02/19 06:16 Dose: Not Given Glycopyrrolate (Robinul) Confirm Administered Dose 0.2 mg .ROUTE .STK-MED ONE Stop: 01/02/19 02:16 Sodium Chloride (Normal Saline) 1,000 mls @ 999 mls/hr IV .Bolus ONE Stop: 01/02/19 01:43 Last Admin: 01/02/19 00:43 Dose: 999 mls/hr Sodium Chloride (Normal Saline) 1,000 mls @ 999 mls/hr IV .Bolus ONE Stop: 01/02/19 01:43 Last Admin: 01/02/19 00:43 Dose: 999 mls/hr Lactated Ringer's (Ringers, Lactated) 1,000 mls @ 125 mls/hr IV ASDIRECTED [facility] Magnesium Sulfate (Magnesium Sulfate In Water Premix) Confirm Administered Dose 50 mls @ as directed .ROUTE .STK-MED ONE Stop: 01/02/19 04:25 Last Admin: 01/02/19 05:41 Dose: Not Given Ketorolac Tromethamine (Toradol) 30 mg IVPUSH Q6H [facility] Stop: 01/03/19 01:46 Last Admin: 01/02/19 07:55 Dose: Not Given Methylergonovine Maleate (Methergine) Confirm Administered Dose 0.2 mg .ROUTE .STK-MED ONE Stop: 01/02/19 02:18 Midazolam HCl (Versed 1 Mg/Ml) Confirm Administered Dose 2 mg .ROUTE .STK-MED ONE Stop: 01/02/19 01:06 Octyl Cyanoacrylate (Dermabond Advance) Confirm Administered Dose 1 applic .ROUTE .STK-MED ONE Stop: 01/02/19 01:37 Phenylephrine HCl (Phenylephrine In Ns 100 Mcg/Ml) Confirm Administered Dose 1 mg .ROUTE .STK-MED ONE Stop: 01/02/19 01:06 Propofol (Diprivan 20 Ml) Confirm Administered Dose 200 mg .ROUTE .STK-MED ONE Stop: 01/02/19 01:06 Rocuronium [place] (Zemuron) Confirm Administered Dose 100 mg .ROUTE .STK-MED ONE Stop: 01/02/19 01:05 Succinylcholine Chloride (Succinylcholine Chloride) Confirm Administered Dose 200 mg .ROUTE .STK-MED ONE Stop: 01/02/19 01:05 Tranexamic Acid (Cyklokapron) Confirm Administered Dose 1,000 mg .ROUTE .STK- MED ONE Stop: 01/02/19 02:27 Last Admin: 01/02/19 06:16 Dose: Not Given - Interaction Infant Disposition, : to Nursery Infant Interaction: Unable to Hold at this Time Support Person: - Exam General: Alert, Oriented HEENT: Pupils Equal Neck: Supple Lungs: Clear to Auscultation, Normal Respiratory Effort Cardiovascular: Regular Rate, Regular Rhythm GI/Abdominal Exam: Normal Bowel Sounds, Soft, Non-Tender, No Organomegaly, No Distention, No Abnormal Bruit, No Mass, Pelvis Stable Extremities: Normal Inspection, Normal Range of Motion, Non-Tender, No Pedal Edema, Normal Capillary Refill Skin: Warm, Dry, Intact Wound/Incisions: Healing Well Neurological: No New Focal Deficit Psy/Mental Status: Alert, Normal Affect, Normal Mood - Problem List Review Problem List Initiated/Reviewed/Updated: Yes - My Orders Last 24 Hours: My Active Orders 01/02/19 01:42 Patient Status [ADT] Routine Ambulate [RC] PER UNIT ROUTINE Communication Order [RC] PER UNIT ROUTINE Communication Order [RC] PER UNIT ROUTINE Communication Order [RC] Per Unit Routine May Shower [RC] ASDIRECTED RT Incentive Spirometry [RC] Q2HWA Vital Signs [RC] Q1H Acetaminophen/oxyCODONE [Percocet 325-5 MG] 1 tab PO Q4H PRN Acetaminophen/oxyCODONE [Percocet 325-5 MG] 2 tab PO Q4H PRN Bisacodyl [Dulcolax] 10 mg RECTAL ONETIME PRN Lanolin [Lansinoh HPA] See Dose Instructions TOP ASDIRECTED PRN Ondansetron [Zofran] 4 mg IVPUSH Q4H PRN diphenhydrAMINE [Benadryl] 25 mg IVPUSH Q6H PRN Assess Lochia [WOMSER] Per Unit Routine Assess Uterine Involution [WOMSER] Per Unit Routine Breast Pump [WOMSER] Per Unit Routine Peripheral IV Discontinue [OM.PC] Routine Sequential Compression Device [OM.PC] Per Unit Routine Resuscitation Status Routine 01/02/19 01:44 Antiembolic Devices [RC] Q12H 01/02/19 06:00 Cardiac Monitoring [RC] Q8H 01/02/19 09:00 Docusate Sodium [Colace] 100 mg PO BID 01/02/19 10:27 Morphine 4 mg IVPUSH Q4H PRN 01/02/19 12:00 CBC WITH AUTO DIFF [HEME] Routine 01/02/19 Lunch Full Liquid Diet [DIET] 01/03/19 05:11 HEMOGLOBIN/HEMATOCRIT,HH [HEME] Timed 01/03/19 07:45 Ibuprofen [Motrin] 800 mg PO Q8H PRN - Assessment Assessment:: S/P emergency C/section. Stable for now.
[2019-01-02] MEDS ORDERED: Calcium Gluconate 10% 1 GM/10 ML SDV IV ONE (11:07)
[2019-01-02] MEDS: Acetaminophen/oxyCODONE 325-5 MG Tab PO PRN ×2 (11:44→16:54)
[2019-01-02] MEDS: Docusate Sodium 100 MG Cap PO SCH ×2 (11:44→20:48)
[2019-01-02] MEDS ORDERED: Furosemide 40 MG/4 ML VIAL IVPUSH ONE (12:53)
--- NOTE | 2019-01-02 13:49 | PN ---
THC Physician - Brief Progress [id number]/26/2019 13:45[facility] Nancy richardson, RAJENDRA - MARELY (MARIA DEL ROSARIO) - SUDEEP GEORGEDate of Service 01/02/2019 13:45HPI/Events of Note EICU admission note:43 year old female, 35 weeks , delievered with placenta previa.Patie nt had a bleed, and therefore was transferred and admitted to ICU for monitoringVideo screen monitor: HR 73 SP02 98% RR 26 BP 126/75Labs reviewed showing a hemoglobin of 10.4 bicarb of 17.8 platelet coun t of 144 and albumin of 1.8 with a glucose of 153eICU assessment:Status post delivery with placenta p revia and hemorrhageAnemiaThrombocytopeniaMetabolic acidosis secondary to blood lossElevated glucosee ICU recommendations:Serial labsH&HCoagulation labs have been normal continue to followMaintain map gr eater than 65Would consider checking iron labs and replete as necessaryPlease call with any changes/r ecommendations, TREATMENT TECHNICIAN is currently following along as well.Interventions Major-Hemorrhage - evaluati on and managementMinor-Communication with other healthcare providers and/or family, Routine modificat ions to care plan (e.g. PRN medications for pain, fever)
[2019-01-03] MEDS: Acetaminophen/oxyCODONE 325-5 MG Tab PO PRN ×4 (00:15→20:59)
[2019-01-03] MEDS: Sodium Chloride 0.9% 1,000 ML IV SCH (00:50)
--- NOTE | 2019-01-03 07:24 | PCM48HPAN ---
Post Anesthesia Note - EVALUATION WITHIN 48HRS OF ANESTHETIC Vital Signs in Normal Range: Yes Patient Participated in Evaluation: Yes Respiratory Function Stable: Yes Airway Patent: Yes Cardiovascular Function Stable: Yes Hydration Status Stable: Yes Pain Control Satisfactory: Yes Nausea and Vomiting Control Satisfactory: Yes Mental Status Recovered: Yes Vital Signs: Last Vital Signs Temp 97.3 F 01/03/19 04:00 Pulse 68 01/02/19 17:00 Resp 20 01/03/19 06:00 BP 115/64 01/03/19 06:00 Pulse Ox 94 L 01/03/19 06:00 - COMMENTS/OBSERVATIONS Free Text/Narrative:: Labs stabilizing, Hgb 9.5 currently. Platelet count stable.
[2019-01-03] MEDS ORDERED: Ibuprofen 800 MG Tab PO PRN (07:45)
[2019-01-03] MEDS: Docusate Sodium 100 MG Cap PO SCH ×2 (08:17→21:00)
--- NOTE | 2019-01-03 10:27 | PCM.PNPP ---
- General Info Date of Service: 01/03/19 Functional Status: Reports: Pain Controlled - Review of Systems General: Reports: No Symptoms HEENT: Reports: No Symptoms Pulmonary: Reports: No Symptoms Cardiovascular: Reports: No Symptoms Gastrointestinal: Reports: No Symptoms Genitourinary: Reports: No Symptoms Musculoskeletal: Reports: No Symptoms Skin: Reports: No Symptoms Neurological: Reports: No Symptoms Psychiatric: Reports: No Symptoms - General Info Date of Service: 01/03/19 - Patient Data Vital Signs - Most Recent: Last Vital Signs Temp 36.7 C 01/03/19 08:00 Pulse 68 01/02/19 17:00 Resp 16 01/03/19 09:00 BP 115/69 01/03/19 09:00 Pulse Ox 93 L 01/03/19 09:00 I&O - Last 24 Hours: Intake & Output 01/02/19 01/03/19 01/03/19 22:59 06:59 14:59 Intake Total 700 850 Output Total 1150 Balance 700 -300 Lab Results - Last 24 Hours: Laboratory Results - last 24 hr 01/02/19 01/02/19 01/03/19 Range/Units 00:44 12:07 05:28 WBC 18.11 H 13.13 H (4.0-11.0) K/uL RBC 3.91 L 3.17 L (4.30-5.90) M/uL Hgb 11.5 L 9.5 L (12.0-16.0) g/dL Hct 32.8 L 27.3 L (36.0-46.0) % MCV 83.9 86.1 (80.0-98.0) fL MCH 29.4 30.0 (27.0-32.0) pg MCHC 35.1 34.8 (31.0-37.0) g/dL RDW Std Deviation 44.2 46.1 (28.0-62.0) fl RDW Coeff of Jake 14 15 (11.0-15.0) % Plt Count 108 L 130 L (150-400) K/uL MPV 9.60 9.60 (7.40-12.00) fL Neut % (Auto) 82.4 H 73.5 (48.0-80.0) % Lymph % (Auto) 9.8 L 18.0 (16.0-40.0) % [place] % (Auto) 7.6 7.2 (0.0-15.0) % Eos % (Auto) 0.1 1.1 (0.0-7.0) % Baso % (Auto) 0.1 0.2 (0.0-1.5) % Neut # (Auto) 14.9 H 9.6 H (1.4-5.7) K/uL Lymph # (Auto) 1.8 2.4 (0.6-2.4) K/uL [place] # (Auto) 1.4 H 1.0 H (0.0-0.8) K/uL Eos # (Auto) 0.0 0.2 (0.0-0.7) K/uL Baso # (Auto) 0.0 0.0 (0.0-0.1) K/uL Nucleated RBC % 0.0 0.0 /100WBC Nucleated RBCs # 0 0 K/uL Blood Type O POSITIVE Antibody Screen NEGATIVE Crossmatch See Detail Med Orders - Current: Current Medications Bisacodyl (Dulcolax) 10 mg RECTAL ONETIME PRN PRN Reason: Constipation Diphenhydramine HCl (Benadryl) 25 mg IVPUSH Q6H PRN PRN Reason: Itching or Nausea Docusate Sodium (Colace) 100 mg PO BID [facility] Last Admin: 01/03/19 08:17 Dose: 100 mg Emollient Ointment (Lansinoh Hpa) 0 gm TOP ASDIRECTED PRN PRN Reason: Sore Nipples Sodium Chloride (Normal Saline) 1,000 mls @ 75 mls/hr IV ASDIRECTED [facility] Last Admin: 01/03/19 00:50 Dose: 75 mls/hr Ibuprofen (Motrin) 800 mg PO Q8H PRN PRN Reason: mild pain or fever Morphine Sulfate (Morphine) 4 mg IVPUSH Q4H PRN PRN Reason: Pain Ondansetron HCl (Zofran) 4 mg IVPUSH Q4H PRN PRN Reason: Nausea/Vomiting Oxycodone/Acetaminophen (Percocet 325-5 Mg) 1 tab PO Q4H PRN PRN Reason: Pain (moderate 4-6) Last Admin: 01/03/19 08:18 Dose: 1 tab Oxycodone/Acetaminophen (Percocet 325-5 Mg) 2 tab PO Q4H PRN PRN Reason: Pain (moderate 4-6) Discontinued Medications Calcium Gluconate (Calcium Gluconate) 1 gm IV .STK-MED ONE Stop: 01/02/19 11:08 Ephedrine Sulfate (Ephedrine Sulfate) Confirm Administered Dose 50 mg .ROUTE .STK-MED ONE Stop: 01/02/19 01:06 Fentanyl (Sublimaze) Confirm Administered Dose 250 mcg .ROUTE .STK-MED ONE Stop: 01/02/19 01:06 Fentanyl (Sublimaze) Confirm Administered Dose 100 mcg .ROUTE .STK-MED ONE Stop: 01/02/19 02:45 Last Admin: 01/02/19 06:16 Dose: Not Given Furosemide (Lasix) 20 mg IVPUSH NOW ONE Stop: 01/02/19 12:54 Last Admin: 01/02/19 13:42 Dose: 20 mg Glycopyrrolate (Robinul) Confirm Administered Dose 0.2 mg .ROUTE .STK-MED ONE Stop: 01/02/19 02:16 Sodium Chloride (Normal Saline) 1,000 mls @ 999 mls/hr IV .Bolus ONE Stop: 01/02/19 01:43 Last Admin: 01/02/19 00:43 Dose: 999 mls/hr Sodium Chloride (Normal Saline) 1,000 mls @ 999 mls/hr IV .Bolus ONE Stop: 01/02/19 01:43 Last Admin: 01/02/19 00:43 Dose: 999 mls/hr Lactated Ringer's (Ringers, Lactated) 1,000 mls @ 125 mls/hr IV ASDIRECTED [facility] Magnesium Sulfate (Magnesium Sulfate In Water Premix) Confirm Administered Dose 50 mls @ as directed .ROUTE .STK-MED ONE Stop: 01/02/19 04:25 Last Admin: 01/02/19 05:41 Dose: Not Given Ketorolac Tromethamine (Toradol) 30 mg IVPUSH Q6H [facility] Stop: 01/03/19 01:46 Last Admin: 01/02/19 07:55 Dose: Not Given Methylergonovine Maleate (Methergine) Confirm Administered Dose 0.2 mg .ROUTE .STK-MED ONE Stop: 01/02/19 02:18 Midazolam HCl (Versed 1 Mg/Ml) Confirm Administered Dose 2 mg .ROUTE .STK-MED ONE Stop: 01/02/19 01:06 Octyl Cyanoacrylate (Dermabond Advance) Confirm Administered Dose 1 applic .ROUTE .STK-MED ONE Stop: 01/02/19 01:37 Phenylephrine HCl (Phenylephrine In Ns 100 Mcg/Ml) Confirm Administered Dose 1 mg .ROUTE .STK-MED ONE Stop: 01/02/19 01:06 Propofol (Diprivan 20 Ml) Confirm Administered Dose 200 mg .ROUTE .STK-MED ONE Stop: 01/02/19 01:06 Rocuronium [place] (Zemuron) Confirm Administered Dose 100 mg .ROUTE .STK-MED ONE Stop: 01/02/19 01:05 Succinylcholine Chloride (Succinylcholine Chloride) Confirm Administered Dose 200 mg .ROUTE .STK-MED ONE Stop: 01/02/19 01:05 Tranexamic Acid (Cyklokapron) Confirm Administered Dose 1,000 mg .ROUTE .STK- MED ONE Stop: 01/02/19 02:27 Last Admin: 01/02/19 06:16 Dose: Not Given - Infant Interaction Infant Disposition, : [place] to Nursery Interaction: Unable to Hold Infant at this Time Support Person: - Recovery Exam Lochia Amount: Small Lochia Color: Rubra/Red Urinary Elimination: Indwelling Catheter - Exam General: Alert, Oriented HEENT: Pupils Equal Neck: Supple Lungs: Clear to Auscultation, Normal Respiratory Effort Cardiovascular: Regular Rate, Regular Rhythm GI/Abdominal Exam: Normal Bowel Sounds, Soft, Non-Tender, No Organomegaly, No Distention, No Abnormal Bruit, No Mass, Pelvis Stable Extremities: Normal Inspection, Normal Range of Motion, Non-Tender, No Pedal Edema, Normal Capillary Refill Skin: Warm, Dry, Intact Wound/Incisions: Healing Well Neurological: No New Focal Deficit Psy/Mental Status: Alert, Normal Affect, Normal Mood - Problem List Review Problem List Initiated/Reviewed/Updated: Yes - My Orders Last 24 Hours: My Active Orders 01/02/19 10:27 Morphine 4 mg IVPUSH Q4H PRN 01/02/19 Lunch Full Liquid Diet [DIET] 01/03/19 07:45 Ibuprofen [Motrin] 800 mg PO Q8H PRN 01/03/19 10:15 Abdomen 1V Flat [CR] Routine 01/03/19 10:23 DC Vanegas Catheter [Urinary Catheter Removal] [RC] Per Unit Routine Arterial Line Discontinue [OM.PC] Routine 01/03/19 Lunch Regular Diet [DIET] - Assessment Assessment:: S/P emergency C/section. Stable for now. - Plan Plan:: D/C IV,A-line advance diate to regular and D/C from the ICU. will send home in am.
--- NOTE | 2019-01-03 10:52 | CR ---
INDICATION: Postop TECHNIQUE: Abdomen/pelvis one-view COMPARISON: None FINDINGS: The upper abdomen was not included on the image. Bowel: Bowel pattern is normal. Soft tissues: No sign of free air. No sign of soft tissue mass. No suspicious calcifications. No radiopaque foreign bodies. Bones: Unremarkable for age. IMPRESSION: Unremarkable mid to lower abdomen. No radiopaque foreign bodies. Dictated by Herman Salazar MD @ Jan 03 2019 10:48AM Signed by Dr. Herman Salazar @ Jan 03 2019 10:50AM
[2019-01-04] MEDS ORDERED: Acetaminophen/oxyCODONE 325-5 MG Tab PO SCH
[2019-01-04] MEDS: Acetaminophen/oxyCODONE 325-5 MG Tab PO PRN ×2 (05:17→10:51)
[2019-01-04 08:45] VITALS: BP 104/60; PULSE 80
[2019-01-04] MEDS ORDERED: Acetaminophen/oxyCODONE 325-5 MG Tab PO PRN (09:40)
--- NOTE | 2019-01-04 09:52 | PCM.DCSUM1 ---
Discharge Summary - Hospital Course Free Text/Narrative:: Discharge home. Follow up in 1 week for post op visit and 6 weeks for visit. Diagnosis: Stroke: No Modified [place] Scale: No Symptoms at All Modified [place] Scale Score: 0 - Discharge Data Discharge Date: 01/04/19 Discharge Disposition: Home, Self-Care 01 Condition: Serious - Referral to Home Health Primary Care Physician: PCP None - Discharge Diagnosis/Problem(s) (1) delivery due to maternal disorder, delivered, curr hospitaliz SNOMED Code(s): 268967883 ICD Code: O99.89 - OTH DISEASES AND CONDITIONS COMPL PREG/CHLDBRTH Status: Acute Priority: High Current Visit: Yes (2) Placenta previa SNOMED Code(s): 18408311 ICD Code: O44.00 - COMPLETE PLACENTA PREVIA NOS OR WITHOUT HEMOR, UNSP TRI Status: Acute Priority: High Current Visit: Yes Qualifiers: Trimester: third trimester Qualified Code(s): O44.03 - Complete placenta previa NOS or without hemorrhage, third trimester (3) delivery without spontaneous labor SNOMED Code(s): 31624268 Status: Acute Priority: High Current Visit: Yes - Patient Summary/Data Operative Procedure(s) Performed: emergancy C/section. - Patient Instructions Diet: Usual Diet as Tolerated Activity: As Tolerated, No Strenuous Activities, Rest and Relax Today Driving: Do Not Drive Showering/Bathing: May Shower Notify Provider of: Fever, Increased Pain, Swelling and Redness, Drainage, Nausea and/or Vomiting Other/Special Instructions: Discharge home. Follow up in 1 week for post op visit and 6 weeks for visit. - Discharge Plan *PRESCRIPTION DRUG MONITORING PROGRAM REVIEWED*: Not Applicable *COPY OF PRESCRIPTION DRUG MONITORING REPORT IN PATIENT JUANA: Not Applicable Prescriptions/Med Rec: Acetaminophen/oxyCODONE [Percocet 325-5 MG] 1 - 2 tab PO Q4H PRN #30 tablet PRN Reason: Pain (Moderate 4-6) Ibuprofen [Motrin] 800 mg PO Q8H PRN #90 tablet PRN Reason: mild pain or fever Home Medications: Home Meds No122/Iron/Folic Acid [ Multi Tablet] 1 each PO DAILY 01/02/19 [History] Acetaminophen/oxyCODONE [Percocet 325-5 MG] 1 - 2 tab PO Q4H PRN #30 tablet [Rx] Ibuprofen [Motrin] 800 mg PO Q8H PRN #90 tablet 01/04/19 [Rx] Oxygen Therapy Mode: Room Air Patient Handouts: Acetaminophen; Oxycodone tablets, Breast Pumping Tips, Ibuprofen tablets and capsules, and Self-Care, Placenta Previa Referrals: [facility] [Outside] MarieKasey huerta CNM [Mid-] - 02/13/19 3:00 pm - Discharge Summary/Plan Comment DC Time >30 min.: Yes - General Info Date of Service: 01/04/19 Functional Status: Reports: Pain Controlled, Tolerating Diet, Ambulating, Urinating - Review of Systems General: Reports: No Symptoms HEENT: Reports: No Symptoms Pulmonary: Reports: No Symptoms Cardiovascular: Reports: No Symptoms Gastrointestinal: Reports: No Symptoms Genitourinary: Reports: No Symptoms Musculoskeletal: Reports: No Symptoms Skin: Reports: No Symptoms Neurological: Reports: No Symptoms Psychiatric: Reports: No Symptoms - Patient Data Vitals - Most Recent: Last Vital Signs Temp 36.6 C 01/04/19 08:00 Pulse 80 01/04/19 08:00 Resp 16 01/04/19 08:00 BP 104/60 01/04/19 08:00 Pulse Ox 95 01/04/19 08:00 Weight - Most Recent: 0 g Med Orders - Current: Current Medications Bisacodyl (Dulcolax) 10 mg RECTAL ONETIME PRN PRN Reason: Constipation Diphenhydramine HCl (Benadryl) 25 mg IVPUSH Q6H PRN PRN Reason: Itching or Nausea Docusate Sodium (Colace) 100 mg PO BID [facility] Last Admin: 01/03/19 21:00 Dose: 100 mg Emollient Ointment (Lansinoh Hpa) 0 gm TOP ASDIRECTED PRN PRN Reason: Sore Nipples Ibuprofen (Motrin) 800 mg PO Q8H PRN PRN Reason: mild pain or fever Morphine Sulfate (Morphine) 4 mg IVPUSH Q4H PRN PRN Reason: Pain Ondansetron HCl (Zofran) 4 mg IVPUSH Q4H PRN PRN Reason: Nausea/Vomiting Oxycodone/Acetaminophen (Percocet 325-5 Mg) 1 tab PO Q4H PRN PRN Reason: Pain (moderate 4-6) Last Admin: 01/04/19 05:17 Dose: 1 tab Oxycodone/Acetaminophen (Percocet 325-5 Mg) 2 tab PO Q4H PRN PRN Reason: Pain (moderate 4-6) Oxycodone/Acetaminophen (Percocet 325-5 Mg) 10 tab PO Q4H PRN PRN Reason: Pain (severe 7-10) Discontinued Medications Calcium Gluconate (Calcium Gluconate) 1 gm IV .STK-MED ONE Stop: 01/02/19 11:08 Ephedrine Sulfate (Ephedrine Sulfate) Confirm Administered Dose 50 mg .ROUTE .STK-MED ONE Stop: 01/02/19 01:06 Fentanyl (Sublimaze) Confirm Administered Dose 250 mcg .ROUTE .STK-MED ONE Stop: 01/02/19 01:06 Fentanyl (Sublimaze) Confirm Administered Dose 100 mcg .ROUTE .STK-MED ONE Stop: 01/02/19 02:45 Last Admin: 01/02/19 06:16 Dose: Not Given Furosemide (Lasix) 20 mg IVPUSH NOW ONE Stop: 01/02/19 12:54 Last Admin: 01/02/19 13:42 Dose: 20 mg Glycopyrrolate (Robinul) Confirm Administered Dose 0.2 mg .ROUTE .STK-MED ONE Stop: 01/02/19 02:16 Sodium Chloride (Normal Saline) 1,000 mls @ 999 mls/hr IV .Bolus ONE Stop: 01/02/19 01:43 Last Admin: 01/02/19 00:43 Dose: 999 mls/hr Sodium Chloride (Normal Saline) 1,000 mls @ 999 mls/hr IV .Bolus ONE Stop: 01/02/19 01:43 Last Admin: 01/02/19 00:43 Dose: 999 mls/hr Lactated Ringer's (Ringers, Lactated) 1,000 mls @ 125 mls/hr IV ASDIRECTED [facility] Magnesium Sulfate (Magnesium Sulfate In Water Premix) Confirm Administered Dose 50 mls @ as directed .ROUTE .STK-MED ONE Stop: 01/02/19 04:25 Last Admin: 01/02/19 05:41 Dose: Not Given Sodium Chloride (Normal Saline) 1,000 mls @ 75 mls/hr IV ASDIRECTED [facility] Last Admin: 01/03/19 00:50 Dose: 75 mls/hr Ketorolac Tromethamine (Toradol) 30 mg IVPUSH Q6H [facility] Stop: 01/03/19 01:46 Last Admin: 01/02/19 07:55 Dose: Not Given Methylergonovine Maleate (Methergine) Confirm Administered Dose 0.2 mg .ROUTE .STK-MED ONE Stop: 01/02/19 02:18 Midazolam HCl (Versed 1 Mg/Ml) Confirm Administered Dose 2 mg .ROUTE .STK-MED ONE Stop: 01/02/19 01:06 Octyl Cyanoacrylate (Dermabond Advance) Confirm Administered Dose 1 applic .ROUTE .STK-MED ONE Stop: 01/02/19 01:37 Phenylephrine HCl (Phenylephrine In Ns 100 Mcg/Ml) Confirm Administered Dose 1 mg .ROUTE .STK-MED ONE Stop: 01/02/19 01:06 Propofol (Diprivan 20 Ml) Confirm Administered Dose 200 mg .ROUTE .STK-MED ONE Stop: 01/02/19 01:06 Rocuronium [place] (Zemuron) Confirm Administered Dose 100 mg .ROUTE .STK-MED ONE Stop: 01/02/19 01:05 Succinylcholine Chloride (Succinylcholine Chloride) Confirm Administered Dose 200 mg .ROUTE .STK-MED ONE Stop: 01/02/19 01:05 Tranexamic Acid (Cyklokapron) Confirm Administered Dose 1,000 mg .ROUTE .STK- MED ONE Stop: 01/02/19 02:27 Last Admin: 01/02/19 06:16 Dose: Not Given - Exam General: Reports: Alert, Oriented Lungs: Reports: Clear to Auscultation, Normal Respiratory Effort. Denies: Decreased Breath Sounds Cardiovascular: Reports: Regular Rate, Regular Rhythm, No Murmurs. Denies: Irregular Rhythm GI/Abdominal Exam: Soft, Pelvis Stable (Female) Exam: Deferred, Vaginal Bleeding Rectal (Female) Exam: Deferred Back Exam: Reports: Normal Inspection Extremities: Normal Inspection, Normal Range of Motion, Non-Tender, No Pedal Edema Skin: Reports: Warm, Dry, Intact Wound/Incisions: Reports: Healing Well, No Drainage. Denies: Erythema Neurological: Reports: No New Focal Deficit, Normal Gait, Normal Speech, Normal Tone, Strength Equal Bilateral, Sensation Intact Psy/Mental Status: Reports: Alert, Normal Affect, Normal Mood
== END 2019-01-04 11:15 | disposition home or self-care (01) | DRG 786 ==
LOC: MW.ED 00:43 → MW.SDS 01:00 → MW.OB 01:01 → OBSVTOIN 01:13 → MW.SDS 01:34 → MW.ICU 05:33 → MW.OB 01-03 17:00
PROVIDERS: ADMIT Obstetrics & Gynecology; ATTEND Obstetrics & Gynecology
PROC: 10D00Z1 Extraction of Products of Conception, Low, Open Approach (ICD-10-PCS; principal; 2019-01-02)
PROC: 03HY32Z Insertion of Monitoring Device into Upper Artery, Percutaneous Approach (ICD-10-PCS; 2019-01-02)
PROC: 4A133B1 Monitoring of Arterial Pressure, Peripheral, Percutaneous Approach (ICD-10-PCS; 2019-01-02)
DX: O60.14X0 Preterm labor third trimester with preterm delivery third trimester, not applicable or unspecified (principal); O44.13 Complete placenta previa with hemorrhage, third trimester; O75.1 Shock during or following labor and delivery; Z37.0 Single live birth; Z3A.35 35 weeks gestation of pregnancy; Z79.899 Other long term (current) drug therapy
CPT/HCPCS: 36415; 36430; 51702; 74018; 74018-26; 80053; 83735; 85025; 85384; 85610; 85730; 86850; 86900; 86901; 86920; 86921; 86922; 99285-25; A9270-GY; J0330; J0610; J1940; J2210; J2250; J2370; J2704; J3010; J3490; J7040; P9016; P9017